=== PATIENT | male | born 1985 | race Caucasian/White ===

== ENCOUNTER 2017-07-21 21:17 | Emergency (ER) | payer SELFPAY ==
--- NOTE | 2017-07-21 21:55 | RAD ---
RIGHT FOOT THREE VIEWS: History: Injury, right foot pain in the right fifth digit. FINDINGS/IMPRESSION: No evidence of fracture or dislocation is identified. POS: [id number]
== END 2017-07-21 23:23 | disposition home or self-care (01) ==
LOC: ERS 21:17
DX: S93.504A Unspecified sprain of right lesser toe(s), initial encounter (principal); F17.210 Nicotine dependence, cigarettes, uncomplicated; W22.8XXA Striking against or struck by other objects, initial encounter

== ENCOUNTER 2021-02-08 19:30 | Outpatient (CLI) | payer SELFPAY | END 2021-02-08 19:31 | disposition home or self-care (01) | LOC: SLEEPLAB 19:30 | PROVIDERS: ATTEND Family Medicine | DX: G47.33 Obstructive sleep apnea (adult) (pediatric) (principal); G47.31 Primary central sleep apnea | CPT/HCPCS: 95811 ==